=== PATIENT | male | born 1960 | race Caucasian/White ===

== ENCOUNTER → 2017-10-26 | Outpatient (CLI) | payer BC ==
[2014-09-02 15:00] VITALS: BP 149/93
[~2017-10-26] MED LIST: COUGH & COLD1 TAB PO; IBUPROFEN200 M1 PO; PREDNISONE20 M1 PO; TUSS PO
[2017-10-26 14:19] LABS: EOS # 0.3 (0.04-0.40); HEMATOCRIT 49.3 % (42.0-52.0); HEMOGLOBIN 17.1 g/dL (13.5-18.0); LYMPH# 1.6 (1.50-4.00); MEAN CELL VOLUME 94 fl (78-100); MEAN CORPUSCULAR HEMOGLOBIN 33 pg (27-31); MEAN CORPUSCULAR HGB CONC 35 g/dL (33-37); MEAN PLATELET VOLUME 10.4 fl (7.4-10.4); MONO # 0.5 (0.20-0.80); NEU # 2.9 (1.40-6.50); PLATELET COUNT 175 K/mm3 (130-400); RED BLOOD COUNT 5.24 M/mm3 (4.20-5.60); RED CELL DISTRIBUTION WIDTH 12.1 % (11.5-14.5); WHITE BLOOD COUNT 5.3 K/mm3 (4.8-10.8)
[2017-10-26 14:32] LABS: ALBUMIN 3.9 g/dL (3.5-5.0); CALCIUM 8.7 mg/dL (8.4-10.2); POTASSIUM 4.9 mmol/L (3.6-5.0); TOTAL BILIRUBIN 0.4 mg/dL (0.2-1.3); TOTAL PROTEIN 6.7 g/dL (6.3-8.2)
[2017-10-26 14:44] LABS: EOS % 5.5 % (0.0-4.0)
[2017-10-26 15:24] LABS: ERYTHROCYTE SEDIMENTATION RATE 1 mm/hr (0-20)
[2017-10-26 16:24] LABS: URINE APPEARANCE CLEAR; URINE BILIRUBIN NEGATIVE (NEGATIVE); URINE BLOOD NEGATIVE (NEGATIVE); URINE COLOR YELLOW; URINE GLUCOSE NEGATIVE (NEGATIVE); URINE KETONE NEGATIVE (NEGATIVE); URINE LEUKOCYTE ESTERASE NEGATIVE (NEGATIVE); URINE NITRATE NEGATIVE (NEGATIVE); URINE PROTEIN(semi-quant) NEGATIVE (NEGATIVE); URINE UROBILINOGEN NORMAL (NORMAL)
[2017-10-26 16:25] LABS: URINE WBC 0-1 /hpf (0-3)
== END ==
LOC: LAB 13:21 → RAD 13:21
PROVIDERS: Family Medicine
DX: R10.9 Unspecified abdominal pain (principal); M54.5 Low back pain; M54.9 Dorsalgia, unspecified

== ENCOUNTER 2017-12-26 05:12 | Emergency (ER) | payer BC ==
[2014-09-02 15:00] VITALS: BP 149/93
[~2017-12-26] VITALS: Ht 162.6 cm; Wt 83.7 kg
== END 2017-12-26 06:05 | disposition left against medical advice (07) ==
LOC: ED 05:12
DX: R53.81 Other malaise (principal); Z53.21 Procedure and treatment not carried out due to patient leaving prior to being seen by health care provider; M25.552 Pain in left hip; R05 Cough; F17.200 Nicotine dependence, unspecified, uncomplicated

== ENCOUNTER → 2017-12-26 | Outpatient (CLI) | payer BC ==
[2017-12-26 05:16] VITALS: BP 159/96
== END ==
LOC: RAD 12:47
DX: J44.1 Chronic obstructive pulmonary disease with (acute) exacerbation (principal); Z88.8 Allergy status to other drugs, medicaments and biological substances

== ENCOUNTER → 2018-06-02 | Outpatient (CLI) | payer BC ==
[~2018-06-02] VITALS: Ht 170.2 cm; Wt 83.2 kg
[~2018-06-02] MED LIST changes: +ADVAIR DISKUS1 DS2 IH; +IPRATROPIUM BROM3 M1 IH
[2018-06-02 15:25] VITALS: BP 148/84
== END ==
LOC: AMSURD 15:15
DX: G45.9 Transient cerebral ischemic attack, unspecified (principal); G25.2 Other specified forms of tremor

== ENCOUNTER → 2018-06-05 | Outpatient (CLI) | payer BC ==
[2018-06-02 15:25] VITALS: BP 148/84
== END ==
LOC: RAD 13:50
DX: G45.9 Transient cerebral ischemic attack, unspecified (principal); G25.2 Other specified forms of tremor

== ENCOUNTER → 2018-07-18 | Outpatient (CLI) | payer BC ==
[2018-06-02 15:25] VITALS: BP 148/84
== END ==
LOC: RAD 09:23
DX: M79.674 Pain in right toe(s) (principal); Z96.7 Presence of other bone and tendon implants

== ENCOUNTER → 2019-07-30 | Outpatient (CLI) | payer BC ==
[~2019-07-30] VITALS: Ht 177.8 cm; Wt 77.3 kg
[2019-07-30 11:30] VITALS: BP 144/111
[2019-07-30 11:35] VITALS: BP 150/98
[2019-07-30 12:11] VITALS: BP 157/105
== END ==
LOC: AMSURD 10:37
DX: M54.9 Dorsalgia, unspecified (principal); R25.2 Cramp and spasm
CPT/HCPCS: J1885; J2360

== ENCOUNTER → 2019-08-11 | Outpatient (CLI) | payer BC ==
[2019-07-30 12:11] VITALS: BP 157/105
[2019-08-11 12:01] LABS: POTASSIUM 4.4 mmol/L (3.5-5.1)
[2019-08-11 12:02] LABS: CALCIUM 8.9 mg/dL (8.3-10.5)
[2019-08-11 12:08] LABS: MAGNESIUM 2.14 mg/dL (1.60-2.60)
== END ==
LOC: LAB 11:33
PROVIDERS: Physician Assistant
DX: M62.838 Other muscle spasm (principal)

== ENCOUNTER → 2019-08-17 | Outpatient (CLI) | payer BC ==
[~2019-08-17] VITALS: Ht 177.8 cm; Wt 83.2 kg
[2019-08-17 16:20] VITALS: BP 156/101
== END ==
LOC: AMSURD 15:54
DX: Z13.6 Encounter for screening for cardiovascular disorders (principal); M79.605 Pain in left leg; Z79.899 Other long term (current) drug therapy
CPT/HCPCS: J2360; J3301

== ENCOUNTER 2020-07-10 04:07 | Emergency (ER) | payer BC ==
[2020-07-10] MEDS ORDERED: CYCLOBENZAPRINE10 M1 PO (04:44)
[2020-07-10 04:55] VITALS: BP 160/100
== END 2020-07-10 04:55 | disposition home or self-care (01) ==
LOC: ED 04:07
DX: M62.830 Muscle spasm of back (principal); F17.210 Nicotine dependence, cigarettes, uncomplicated; Z91.09 Other allergy status, other than to drugs and biological substances; Z79.1 Long term (current) use of non-steroidal anti-inflammatories (NSAID)
CPT/HCPCS: J1885; J2360

== ENCOUNTER → 2020-08-04 | Outpatient (CLI) | payer BC ==
[2020-07-15 12:16] VITALS: BP 161/92
[~2020-08-04] MED LIST changes: +CYCLOBENZAPRINE10 M1 PO; +NORCO 325 MG-7.1 TA1 PO
== END ==
LOC: RAD 16:39
DX: M25.461 Effusion, right knee (principal); M25.561 Pain in right knee

== ENCOUNTER → 2020-08-28 | Outpatient (REF) ==
[2020-07-15 12:16] VITALS: BP 161/92
== END ==
LOC: LAB 09:40
DX: I10 Essential (primary) hypertension (principal)

== ENCOUNTER 2020-09-04 15:00 | Outpatient (RCR) | payer BC ==
[2020-07-15 12:16] VITALS: BP 161/92
== END 2020-09-08 ==
LOC: PT
DX: M25.561 Pain in right knee (principal)

== ENCOUNTER → 2021-04-27 | Outpatient (CLI) | payer BC | LOC: LAB 16:20 | DX: U07.1 COVID-19 (principal) ==

== ENCOUNTER → 2022-01-18 | Outpatient (CLI) | payer SELFPAY | LOC: RAD 13:13 | DX: J20.9 Acute bronchitis, unspecified (principal) ==

== ENCOUNTER 2022-03-06 10:58 | Emergency (ER) | payer SELFPAY ==
[2022-03-06 12:03] LABS: BASO # 0.03 K/mm3 (0.02-0.10); EOS # 0.17 K/mm3 (0.04-0.40); EOS % 2.9 % (0.0-4.0); HEMATOCRIT 45.7 % (42.0-52.0); HEMOGLOBIN 15.6 g/dL (13.5-18.0); MEAN CELL VOLUME 94 fl (78-100); MEAN CORPUSCULAR HEMOGLOBIN 32 pg (27-31); MEAN CORPUSCULAR HGB CONC 34 g/dL (33-37); MEAN PLATELET VOLUME 9.8 fl (7.4-10.4); MONO # 0.65 K/mm3 (0.20-0.80); NEU # 3.89 K/mm3 (1.40-6.50); PLATELET COUNT 157 K/mm3 (130-400); RED BLOOD COUNT 4.85 M/mm3 (4.20-5.60); RED CELL DISTRIBUTION WIDTH 12.5 % (11.5-14.5)
[2022-03-06 12:12] LABS: POTASSIUM 4.3 mmol/L (3.5-5.1)
[2022-03-06] MEDS ORDERED: PROAIR HFA0.09 MG/AC IH (13:26)
[2022-03-06] MEDS ORDERED: PREDNISONE20 M1 PO (13:26)
[2022-03-06 13:56] VITALS: BP 149/87
== END 2022-03-06 13:57 | disposition home or self-care (01) ==
LOC: ED 10:58
PROVIDERS: Family Medicine
DX: J45.901 Unspecified asthma with (acute) exacerbation (principal); E66.9 Obesity, unspecified; F17.200 Nicotine dependence, unspecified, uncomplicated; Z20.822 Contact with and (suspected) exposure to COVID-19

== ENCOUNTER → 2022-03-29 | Outpatient (CLI) | payer SELFPAY ==
[~2022-03-29] MED LIST changes: +PROAIR HFA0.09 MG/AC IH
== END ==
LOC: RAD 15:49
DX: M46.1 Sacroiliitis, not elsewhere classified (principal)

== ENCOUNTER → 2023-07-01 | Outpatient (CLI) | payer BC | LOC: LAB 14:47 | DX: U07.1 COVID-19 (principal) ==

== ENCOUNTER → 2024-02-03 | Outpatient (REF) | payer BC | LOC: LAB 09:31 | DX: R68.83 Chills (without fever) (principal) ==

== ENCOUNTER → 2024-02-06 | Outpatient (CLI) | payer BC | LOC: RAD 12:16 | DX: M19.09 Primary osteoarthritis, other specified site (principal); R22.9 Localized swelling, mass and lump, unspecified; Z98.890 Other specified postprocedural states ==

== ENCOUNTER 2024-03-09 07:20 | Emergency (ER) | payer BC ==
[~2024-03-09] VITALS: Ht 175.3 cm; Wt 83.2 kg
[2024-03-09] MEDS ORDERED: Lidocaine 4% Topical Patch TP ONE (09:00)
[2024-03-09 09:19] VITALS: BP 140/99
== END 2024-03-09 09:52 | disposition home or self-care (01) ==
LOC: ED 07:20
DX: R07.89 Other chest pain (principal); E66.9 Obesity, unspecified

== ENCOUNTER 2024-05-31 10:45 | Emergency (ER) | payer BC ==
[~2024-05-31] VITALS: Ht 170.2 cm; Wt 86.4 kg
[2024-05-31] MEDS ORDERED: ELIQUIS5 MG PO (12:30)
[2024-05-31] MEDS ORDERED: CELECOXIB100 M1 PO (12:30)
[2024-05-31] MEDS ORDERED: Cyclobenzaprine 10 MG TAB PO ONE (13:00)
[2024-05-31] MEDS ORDERED: Acetaminophen 500 MG TAB PO ONE (13:00)
[2024-05-31] MEDS ORDERED: CYCLOBENZAPRINE10 M1 PO (13:20)
[2024-05-31 13:33] VITALS: BP 145/64
== END 2024-05-31 13:36 | disposition home or self-care (01) ==
LOC: ED 10:45
DX: M54.42 Lumbago with sciatica, left side (principal); M54.16 Radiculopathy, lumbar region; Z86.718 Personal history of other venous thrombosis and embolism; Z87.891 Personal history of nicotine dependence; Z79.01 Long term (current) use of anticoagulants

== ENCOUNTER → 2024-06-01 | Outpatient (CLI) | payer BC ==
[~2024-06-01] MED LIST changes: +CELECOXIB100 M1 PO; +ELIQUIS5 MG PO
== END ==
LOC: RAD 12:00
DX: I82.432 Acute embolism and thrombosis of left popliteal vein (principal)

== ENCOUNTER → 2024-07-21 | Outpatient (CLI) | payer BC ==
[2024-07-21 12:08] LABS: BASO # 0.04 K/mm3 (0.02-0.10); EOS # 0.24 K/mm3 (0.04-0.40); EOS % 4.2 % (0.0-4.0); HEMATOCRIT 47.1 % (42.0-52.0); HEMOGLOBIN 16.1 g/dL (13.5-18.0); LYMPH# 1.31 K/mm3 (1.50-4.00); MEAN CELL VOLUME 97 fl (78-100); MEAN CORPUSCULAR HEMOGLOBIN 33 pg (27-31); MEAN CORPUSCULAR HGB CONC 34 g/dL (33-37); MEAN PLATELET VOLUME 10.5 fl (7.4-10.4); MONO # 0.46 K/mm3 (0.20-0.80); NEU # 3.59 K/mm3 (1.40-6.50); PLATELET COUNT 196 K/mm3 (130-400); RED BLOOD COUNT 4.85 M/mm3 (4.20-5.60); RED CELL DISTRIBUTION WIDTH 12.4 % (11.5-14.5); WHITE BLOOD COUNT 5.7 K/mm3 (4.8-10.8)
[2024-07-21 12:57] LABS: CALCIUM 9.1 mg/dL (8.3-10.5)
[2024-07-22 07:39] LABS: FACTOR V LEIDEN MUTATION B Heterozygous (Negative)
[2024-07-26 05:39] LABS: HOMOCYSTEINE SERUM OR PLASMA 12.3 umol/L (0.0-17.2)
[2024-07-27 09:02] LABS: ANTI-THROMBIN III 120 % (72-128)
[2024-07-27 16:56] LABS: ANTIPHOSPHOLIPID IGM AMS; PROTEIN S ANTIGEN FREE AMS
== END ==
LOC: ED 10:07 → EDSTATUS 10:17 → LAB 10:18
PROVIDERS: Internal Medicine Interventional Cardiology
DX: Z86.718 Personal history of other venous thrombosis and embolism (principal)